=== PATIENT | female | born 1980 | race Caucasian/White ===

== ENCOUNTER 2017-05-09 18:40 | Emergency (ER) | payer OTHER | END 2017-05-09 19:40 | disposition home or self-care (01) | LOC: FER 18:40 | DX: S70.362A Insect bite (nonvenomous), left thigh, initial encounter (principal); K21.9 Gastro-esophageal reflux disease without esophagitis; F17.210 Nicotine dependence, cigarettes, uncomplicated; Z88.5 Allergy status to narcotic agent; W57.XXXA Bitten or stung by nonvenomous insect and other nonvenomous arthropods, initial encounter; Y92.007 Garden or yard of unspecified non-institutional (private) residence as the place of occurrence of the external cause | CPT/HCPCS: 99282 ==

== ENCOUNTER 2020-12-06 07:09 | Emergency (ER) | payer OTHER ==
[~2020-12-06 07:09] MED LIST: ANUCORT-HC25 MG PR; BACTRIM DS TAB1 EACH PO; BENTYL10 MG PO; MOBIC7.5 MG PO; MOTRIN600 MG PO; ONDANSETRON ODT4 MG SL; PERCOCET 5-3251 EACH PO; PYRIDIUM100 MG PO; ULTRAM50 MG PO; ZUPLENZ4 MG SL
[2020-12-06] MEDS ORDERED: PERCOCET 5-3251 EACH PO (08:47)
[2020-12-06] MEDS ORDERED: MOTRIN600 MG PO (08:47)
[2020-12-06] MEDS ORDERED: ABREVA2 GM TOP (09:09)
--- NOTE | 2020-12-06 12:17 | NUR ---
RECEIVED REFERRAL FROM DR. CLARK, TO SEE PT. FOR RESOURCES SHE IS HOMELESS. MET WITH PT. SHE ADVISED THAT SHE HAS BEEN HOMELESS FOR SEVERAL MONTHS AND IS LIVING WITH FRIENDS. SHE WAS EMPLOYED, BUT LOST HER JOB DUE TO SOMEONE MAKING A PRANK PHONE CALL TO HER. PT. STATED THAT HER FATHER IS LIVING, BUT THEY DO NOT TALK WITH EACH OTHER. SHE HAS A BROTHER AND SISTER BUT THEY ARE ESTRANGED. GAVE PT. INFORMATION REGARDING MEDICAL CLINIC, [facility], [facility], [facility]. SHE STATED THAT [facility] DID NOT HAVE ANY ROOM. ADVISED HER THAT THE CARING PLACE IN [place] COULD BE A POSSIBILTY FOR CORRECTION, BUT SHE REFUSED. ADVISED DR. CLARK AND NURSE OF THE INFORMATION GIVEN TO PT.
== END 2020-12-06 09:59 | disposition home or self-care (01) ==
LOC: FER 07:09
DX: S20.212A Contusion of left front wall of thorax, initial encounter (principal); F17.200 Nicotine dependence, unspecified, uncomplicated; Z86.718 Personal history of other venous thrombosis and embolism; Z86.711 Personal history of pulmonary embolism; Z88.5 Allergy status to narcotic agent; Z91.048 Other nonmedicinal substance allergy status; W19.XXXA Unspecified fall, initial encounter; Y92.009 Unspecified place in unspecified non-institutional (private) residence as the place of occurrence of the external cause
CPT/HCPCS: 71101; 96372; J1170

== ENCOUNTER 2020-12-18 03:47 | Emergency (ER) | payer OTHER ==
[~2020-12-18 03:47] MED LIST changes: +ABREVA2 GM TOP
[2020-12-18] MEDS ORDERED: PREDNISONE 20MG20 MG PO (05:52)
[2020-12-18] MEDS ORDERED: PERCOCET 5-3251 EACH PO (05:52)
[2020-12-18] MEDS ORDERED: ONDANSETRON ODT4 MG SL (05:56)
== END 2020-12-18 06:07 | disposition home or self-care (01) ==
LOC: FER 03:47
DX: M94.0 Chondrocostal junction syndrome [Tietze] (principal); F17.210 Nicotine dependence, cigarettes, uncomplicated; Z88.5 Allergy status to narcotic agent
CPT/HCPCS: 36415; 71250; 84484; 93005; 94010; J1100; J1170; J1885; J2405

== ENCOUNTER 2021-04-18 10:00 | Emergency (ER) | payer OTHER ==
[~2021-04-18 10:00] MED LIST changes: +PREDNISONE 20MG20 MG PO
[2021-04-18 11:23] LABS: ALBUMIN 3.2 g/dL (3.4-5.0); BILIRUBIN - TOTAL 0.6 mg/dL (0.2-1.0); BUN/CREAT RATIO (CALC) 17.4 RATIO; C-REACTIVE PROTEIN 1.9 mg/dL (<=0.90); CREATININE 0.69 mg/dL (0.51-0.95); GLOBULIN (CALCULATION) 3.1 g/dL; POTASSIUM 3.7 mmol/L (3.5-5.1); TOTAL PROTEIN 6.3 g/dL (6.4-8.2)
[2021-04-18 11:25] LABS: BASOPHIL 0.8 % (0-2); HCT 41.2 % (37.0-47.0); HGB 13.8 g/dl (12.5-16.0); LYMPHOCYTE 35.4 % (15-48); MCH 32.5 pg (25.0-31.0); MCHC 33.5 g/dL (32.0-36.0); MCV 97.2 fL (78.0-100.0); MONOCYTE 7.6 % (0-12); MPV 9.5 fL (6.0-9.5); NRBC 0; PLT 436 K/uL (150-400); RBC 4.24 M/uL (4.20-5.40); RDW 13.2 % (11.5-14.0); WBC 16.4 K/uL (4.0-10.5)
[2021-04-18 11:26] LABS: LACTIC ACID 1.3 mmol/L (0.4-1.9)
[2021-04-18 13:20] LABS: BILIRUBIN NEGATIVE (NEGATIVE); BLOOD NEGATIVE Ery/uL (NEGATIVE); CLARITY CLEAR (CLEAR); COLOR YELLOW (YELLOW); GLUCOSE (U) NORMAL (NORMAL); LEUKOCYTES NEGATIVE Leu/uL (NEGATIVE); NITRITE NEGATIVE (NEGATIVE); PROTEIN NEGATIVE (NEGATIVE); UROBILINOGEN 0.2 mg/dL (0.2-1.0)
== END 2021-04-18 14:30 | disposition left against medical advice (07) ==
LOC: FER 10:00
PROVIDERS: Internal Medicine
DX: K61.1 Rectal abscess (principal); F17.200 Nicotine dependence, unspecified, uncomplicated; Z88.5 Allergy status to narcotic agent
CPT/HCPCS: 36415; 72193; 80053; 81003; 83605; 83690; 85025; 86140; J2270; J2405; J7030; Q9967

== ENCOUNTER 2021-06-13 07:46 | Emergency (ER) | payer OTHER ==
[2021-06-13 09:25] LABS: BASOPHIL 1.7 % (0-2); EOSINOPHIL 5.2 % (0-5); HCT 43.9 % (37.0-47.0); HGB 14.7 g/dl (12.5-16.0); LYMPHOCYTE 42.8 % (15-48); MCH 31.9 pg (25.0-31.0); MCHC 33.5 g/dL (32.0-36.0); MCV 95.2 fL (78.0-100.0); MONOCYTE 8.7 % (0-12); MPV 9.5 fL (6.0-9.5); NEUTROPHIL 41.5 % (41-80); NRBC 0; PLT 450 K/uL (150-400); RBC 4.61 M/uL (4.20-5.40); RDW 12.4 % (11.5-14.0); WBC 9.7 K/uL (4.0-10.5)
[2021-06-13 09:37] LABS: ALBUMIN 3.4 g/dL (3.4-5.0); BILIRUBIN - TOTAL 0.4 mg/dL (0.2-1.0); BUN/CREAT RATIO (CALC) 14.6 RATIO; CREATININE 0.82 mg/dL (0.51-0.95); GLOBULIN (CALCULATION) 3.3 g/dL; POTASSIUM 3.7 mmol/L (3.5-5.1); TOTAL PROTEIN 6.7 g/dL (6.4-8.2); URIC ACID 2.5 mg/dL (2.6-6.2)
[2021-06-13] MEDS ORDERED: INDOMETHACIN50 MG PO (10:55)
[2021-06-13] MEDS ORDERED: PERCOCET 5-3251 EACH PO ×2 (10:55→11:14)
== END 2021-06-13 12:23 | disposition home or self-care (01) ==
LOC: FER 07:46
PROVIDERS: Emergency Medicine
DX: M10.9 Gout, unspecified (principal); M19.071 Primary osteoarthritis, right ankle and foot; F17.200 Nicotine dependence, unspecified, uncomplicated; Z88.5 Allergy status to narcotic agent
CPT/HCPCS: 36415; 73630; 80053; 84550; 85025; J1885

== ENCOUNTER 2021-06-26 15:50 | Emergency (ER) | payer OTHER ==
[~2021-06-26 15:50] MED LIST changes: +INDOMETHACIN50 MG PO
[2021-06-26 17:39] LABS: BASOPHIL 0.9 % (0-2); EOSINOPHIL 1.3 % (0-5); HCT 46.2 % (37.0-47.0); HGB 15.3 g/dl (12.5-16.0); LYMPHOCYTE 48.3 % (15-48); MCH 31.9 pg (25.0-31.0); MCHC 33.1 g/dL (32.0-36.0); MCV 96.3 fL (78.0-100.0); NEUTROPHIL 41.2 % (41-80); NRBC 0; PLT 505 K/uL (150-400); RDW 12.4 % (11.5-14.0)
[2021-06-26 17:50] LABS: BILIRUBIN - TOTAL 0.4 mg/dL (0.2-1.0); BUN/CREAT RATIO (CALC) 15.3 RATIO; CREATININE 0.85 mg/dL (0.51-0.95); GLOBULIN (CALCULATION) 3.2 g/dL; POTASSIUM 3.7 mmol/L (3.5-5.1); TOTAL PROTEIN 7.2 g/dL (6.4-8.2)
[2021-06-26] MEDS ORDERED: MOTRIN600 MG PO (19:08)
== END 2021-06-26 19:47 | disposition home or self-care (01) ==
LOC: FER 15:50
PROVIDERS: Physician Assistant
DX: R07.89 Other chest pain (principal); F17.210 Nicotine dependence, cigarettes, uncomplicated; Z88.5 Allergy status to narcotic agent
CPT/HCPCS: 36415; 71045; 80053; 84484; 85025; 93005; J7030

== ENCOUNTER 2021-10-12 08:20 | Emergency (ER) | payer OTHER ==
[~2021-10-12] VITALS: Ht 167.6 cm; Wt 90.7 kg
[2021-10-12 08:53] LABS: BASOPHIL 1.1 % (0-2); EOSINOPHIL 5.7 % (0-5); HCT 44.4 % (37.0-47.0); HGB 14.6 g/dl (12.5-16.0); LYMPHOCYTE 32.3 % (15-48); MCH 32.2 pg (25.0-31.0); MCHC 32.9 g/dL (32.0-36.0); MONOCYTE 9.5 % (0-12); MPV 9.5 fL (6.0-9.5); NEUTROPHIL 51.2 % (41-80); NRBC 0; PLT 530 K/uL (150-400); RBC 4.53 M/uL (4.20-5.40); RDW 12.8 % (11.5-14.0); WBC 12.9 K/uL (4.0-10.5)
[2021-10-12 09:00] LABS: INR 0.98 (0.9-1.2); PROTHROMBIN TIME 12.4 SECONDS (11.8-13.4); PTT 28.6 SECONDS (24.4-34.7)
[2021-10-12 09:07] LABS: ALBUMIN 3.7 g/dL (3.4-5.0); BILIRUBIN - TOTAL 0.6 mg/dL (0.2-1.0); BUN/CREAT RATIO (CALC) 18.5 RATIO; CREATININE 0.81 mg/dL (0.51-0.95); GLOBULIN (CALCULATION) 3.6 g/dL; POTASSIUM 3.8 mmol/L (3.5-5.1); TOTAL PROTEIN 7.3 g/dL (6.4-8.2)
[2021-10-12] MEDS ORDERED: LOVENOX150 MG/1 M SC (09:46)
[2021-10-12] MEDS ORDERED: WARFARIN SODIUM5 MG PO (09:47)
[2021-10-12] MEDS ORDERED: PERCOCET 5-3251 EACH PO (09:47)
[2021-10-12] MEDS ORDERED: ONDANSETRON ODT4 MG PO (09:47)
== END 2021-10-12 10:10 | disposition home or self-care (01) ==
LOC: FER 08:20
PROVIDERS: Emergency Medicine
DX: I82.432 Acute embolism and thrombosis of left popliteal vein (principal); I82.442 Acute embolism and thrombosis of left tibial vein; F17.210 Nicotine dependence, cigarettes, uncomplicated; Z88.5 Allergy status to narcotic agent
CPT/HCPCS: 36415; 80053; 82550; 85025; 85610; 85730; 93971; 96372; J1170; J1650; J2405

== ENCOUNTER 2021-11-28 10:09 | Emergency (ER) | payer OTHER ==
[~2021-11-28 10:09] MED LIST changes: +LOVENOX150 MG/1 M SC; +ONDANSETRON ODT4 MG PO; +WARFARIN SODIUM5 MG PO
[2021-11-28] MEDS ORDERED: PERCOCET 5-3251 EACH PO ×4 (11:54→13:05)
== END 2021-11-28 12:16 | disposition home or self-care (01) ==
LOC: FER 10:09
DX: I82.812 Embolism and thrombosis of superficial veins of left lower extremity (principal); Z88.5 Allergy status to narcotic agent; Z86.711 Personal history of pulmonary embolism; Z79.01 Long term (current) use of anticoagulants
CPT/HCPCS: 93971